=== PATIENT | male | born 1945 | race Caucasian/White ===

== ENCOUNTER → 2020-08-06 12:45 | Outpatient (CLI) | payer OTHER, SELFPAY ==
--- NOTE | 2020-08-06 12:50 | DI.MRI.S_ITS ---
PROCEDURE: MR PELIS WO/W CON INDICATIONS: Elevated prostate specific antigen [PSA] TECHNIQUE: Coronal HASTE, axial T1 FSE with fat saturation, 3-plane nonbreath-hold T2 FSE. After the administration of contrast, dynamic axial, delayed axial and coronal VIBE or 2-D FLASH with fat saturation through the pelvis. Optional diffusion weighted imaging and ADC may be performed. COMPARISON: None. FINDINGS: Image quality: There is motion artifact on a few sequences and susceptibility artifact on others. Diffusion weighted and dynamic contrast enhanced images are nondiagnostic due to susceptibility artifact from right hip arthroplasty. Prostate: Gland size is approximately 5.2 x 6.4 x 7.1 cm; ellipsoid gland volume is 122.9 mL. There is prominent medial lobe indenting into the base of the urinary bladder. Heterogeneous nodular changes of transitional zone hypertrophy. The gland otherwise demonstrates normal contours. There are no discrete T2 hypointense lesions. There is no focal abnormal enhancement. Genitourinary system: Bladder wall thickness is mildly diffusely thickened, likely due to coarse trabeculation. Distal ureters are non distended. Bowel and peritoneum: No pathologic free pelvic fluid. Inferior colon and small bowel loops are normal in caliber. Nodes and vessels: No pelvic or inguinal adenopathy by size criteria. Iliac vessels are normal in caliber. Soft tissues: Small fat and fluid containing indirect left inguinal hernia. Bones: Right hip arthroplasty changes result in susceptibility artifact in the right hip region. Marrow otherwise demonstrates normal overall signal, without lesions to suggest metastases. IMPRESSION: 1. Nondiagnostic MR with respect to diffusion-weighted imaging of the prostate gland secondary to susceptibility artifact from right hip arthroplasty. 2. Enlarged prostate gland with morphology of benign prostatic hypertrophy. No discrete lesion seen on T2 imaging that would candidate for targeted biopsy. 3. Urinary bladder wall thickening suggesting chronic bladder outlet obstruction. 4. Tiny left inguinal hernia. Dictated by: Jenn Lucio M.D. on 08/07/2020 at 9:10 Approved by: Jenn Lucio M.D. on 08/07/2020 at 9:28
== END ==
PROVIDERS: Referring Provider Nurse Practitioner Family; Visit Provider Nurse Practitioner Family
DX: R97.20 Elevated prostate specific antigen [PSA] (principal); N40.0 Benign prostatic hyperplasia without lower urinary tract symptoms
CPT/HCPCS: 72197; A9579